=== PATIENT | female | born 1955 | race Caucasian/White ===

== ENCOUNTER 2021-01-04 09:43 | Outpatient (CLI) | payer MEDICARE, SELFPAY ==
--- NOTE | 2021-01-04 09:57 | XR_ITS ---
WS: [id number] Exam: XR knee LT 1-2V 10181 Date/Time of Exam: 01/04/2021 9:57 AM Reason For Exam: CHRONIC PAIN IN LEFT KNEE No acute fracture or dislocation. No joint effusion seen. The joint compartments appear to be relativ luisito well maintained. XR/XR knee LT 1-2V 29543 IMPRESSION: 1. Negative left knee.
[2021-01-04 10:44] LABS: Hematocrit 45.9 % (37.0-47.0); Mean Corpuscular HGB Conc 32.7 g/dL (30.0-36.0); Mean Corpuscular Hemoglobin 27.9 pg (28.0-34.0); Mean Corpuscular Volume 85.3 fl (81-99); Mean Platelet Volume 10.7 fL (7.4-10.4); Platelet Count 291 10^3/cmm (130-400); Red Blood Count 5.38 10^6/uL (4.1-5.3); Red Cell Distribution Width 13.2 % (12.1-15.1); White Blood Count 9.1 10^3/uL (4.0-10.0)
[2021-01-04 11:20] LABS: Anion Gap 12.6 (5-19); Blood Urea Nitrogen 20 mg/dL (8-23); Calcium 9.3 mg/dL (8.5-10.5); Carbon Dioxide 28 mmol/L (22-29); Chloride 105 mmol/L (98-107); Chol HDL Ratio 2.82 mg/dL (0.0-4.40); Cholesterol 206 mg/dL (0-200); Glomerular Filtration Rate 71.5 mL/min (90-130); Glucose 92 mg/dL (65-115); HDL Cholesterol 73 mg/dL (60-100); LDL Cholesterol Calculated 118 mg/dL (50-129); Osmolality Calculated 294 mOsm/kg (285-295); Potassium 4.6 mmol/L (3.5-5.1); Sodium 141 mmol/L (136-145); Triglycerides 77 mg/dL (0-150); VLDL Cholestrol Calculation 15 mg/dL (0-30)
[2021-01-04 14:11] LABS: Absolute Eosinophils 0.1 10^3/cmm (0.0-0.7); Absolute Segmented Neutrophil 5.6 10/cmm (1.6-7.1); Band Neutrophils Absolute 0.3 10^3/cmm (0.0-1.2); Eosinophils 2 %; Lymphocytes 23 %; Monocytes Absolute 0.5 10^3/cmm (0.1-0.6)
[2021-01-04 14:12] LABS: Absolute Neutrophil 5.9 10^3/cmm (1.4-6.5); Lymphocytes Absolute 2.5 10^3/cmm (1.2-3.4); Ovalocytes Trace; Platelet Estimate Normal (Normal); Smudge Cells Trace; Tear Drop Cells Trace
[2021-01-04 14:13] LABS: Segmented Neutrophils 62 %
[2021-01-04 18:34] LABS: Total Cells Counted 100 (0-100)
[2021-01-05 13:07] LABS: Lyme AB Screen <0.90 index
[2021-01-07 17:17] LABS: RMSF IGG NOT DETECTED; RMSF IGM NOT DETECTED
[2021-01-07 17:33] LABS: E. Chaffeensis AB IGG <1:64; E. Chaffeensis AB IGM <1:20
[2021-01-11 16:32] LABS: Francisella Tularensis DA <1:20 titer
== END 2021-01-04 09:44 | disposition home or self-care (01) ==
LOC: RAD 09:50
PROVIDERS: PCP Nurse Practitioner; Visit Provider Nurse Practitioner
DX: Z13.228 Encounter for screening for other metabolic disorders (principal); Z91.89 Other specified personal risk factors, not elsewhere classified; M25.562 Pain in left knee
CPT/HCPCS: 36415; 73560; 80048; 80061; 85007; 85027; 86000; 86618; 86666; 86757

== ENCOUNTER 2021-01-25 08:42 | Outpatient (CLI) | payer MEDICARE, SELFPAY ==
--- NOTE | 2021-01-25 08:48 | MR_ITS ---
WS: [id number] MRI LEFT KNEE HISTORY: PAIN IN LEFT KNEE COMPARISON: 01/04/2021 Anterior cruciate ligament: Very mild increased signal in the ACL but no tear. Posterior cruciate ligament: Intact. Medial collateral ligament: Small amount of increased T2 signal surrounding the MCL. No full-thicknes s tear. Posterior lateral corner structures: Intact. Medial menisci: Mild intrasubstance degeneration in the posterior horn no tear identified. There is a small amount of fluid and increased T2 signal posterior to the posterior horn medial meniscus. Proba gloria representing synovitis. Lateral meniscus: Intact. Normal signal, size and shape. Extensor mechanism: Distal quadriceps tendon and patellar tendons are intact. Fluid and soft tissue: Small suprapatellar joint effusion is within normal limits. No Eisenberg's cyst. Osseous and articular structures: Patellofemoral compartment: Moderate chondromalacia involving both the medial and lateral facets. Mod erate patellofemoral joint space narrowing and minimal subchondral cyst in the medial facet. Medial compartment: Mild narrowing of the medial compartment. Thinning and fissuring involving the we ightbearing surface of the femoral condyle and tibial plateau cartilage. No full-thickness defect. No marrow edema. Lateral compartment: Mild narrowing of the lateral compartment. Very minimal thinning and fissuring o f the cartilage greatest involving the posterior weightbearing surface of the tibial plateau. Small subchondral cyst at the base of the tibial spines. MR/MR knee LT wo con* [id number] IMPRESSION: 1. 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 2. Mild narrowing of the medial and lateral compartments with mild thinning an d fissuring of the cartilage. 3. Focal synovitis involving the posterior horn medial meniscus.
== END 2021-01-25 08:43 | disposition home or self-care (01) ==
PROVIDERS: PCP Nurse Practitioner; Visit Provider Nurse Practitioner
DX: M22.42 Chondromalacia patellae, left knee (principal); M65.862 Other synovitis and tenosynovitis, left lower leg
CPT/HCPCS: 73721

== ENCOUNTER → 2021-05-25 08:52 | Outpatient (BNVA) | payer MEDICARE, SELFPAY | PROVIDERS: PCP Nurse Practitioner; Referring Provider Nurse Practitioner; Visit Provider Specialist | DX: M17.12 Unilateral primary osteoarthritis, left knee (principal); M25.562 Pain in left knee | CPT/HCPCS: 73560; 73565 ==